=== PATIENT | female | born 1990 | race Caucasian/White ===

== ENCOUNTER 2017-04-12 21:30 | Emergency (ER) | payer SELFPAY ==
[~2017-04-12] VITALS: Ht 154.9 cm; Wt 80.0 kg
[~2017-04-12 21:30] MED LIST: ALKA SELTZE PO; AMOXICILLIN875 MG OR; AMOXICILLIN875 MG PO; BACTRIM DS1 TAB PO; CEPHALEXIN500 MG PO; CIPROFLOXACN500 MG PO; FLEXERIL10 MG PO; FLONASE NASAL50 MCG; HYDROCO/APAP1 T12 PO; LORTAB 5 OR; LORTAB 7.5-3251 TAB PO; NO; PENICILLIN VK250 MG PO; PRE-NATAL PO; PYRIDIUM200 MG PO; TUMS500 MG PO; TYLENOL 500MG TAB MT; TYLENOL 500MG TAB PO; ULTRAM50 M1 PO
[2017-04-12] MEDS ORDERED: PREDNISONE50 MG PO (21:43)
[2017-04-12 21:50] VITALS: BP 134/82
== END 2017-04-12 21:50 | disposition home or self-care (01) | DRG 563 ==
LOC: ED 21:30
DX: S43.431A Superior glenoid labrum lesion of right shoulder, initial encounter (principal); X50.0XXA Overexertion from strenuous movement or load, initial encounter; X50.3XXA Overexertion from repetitive movements, initial encounter; Y93.89 Activity, other specified; Y92.89 Other specified places as the place of occurrence of the external cause

== ENCOUNTER 2017-09-12 10:30 | Emergency (ER) | payer SELFPAY ==
[~2017-09-12] VITALS: Ht 154.9 cm; Wt 80.0 kg
[~2017-09-12 10:30] MED LIST changes: +PREDNISONE50 MG PO
[2017-09-12 11:09] LABS: URINE BILIRUBIN - DIPSTICK NEGATIVE (NEGATIVE); URINE BLOOD DIPSTICK LARGE (NEGATIVE); URINE COLOR YELLOW; URINE GLUCOSE - DIPSTICK NEGATIVE (NEGATIVE); URINE KETONE NEGATIVE (NEGATIVE); URINE LEUK ESTERASE NEGATIVE (NEGATIVE); URINE NITRITE - DIPSTICK NEGATIVE (Negative); URINE PROTEIN - DIPSTICK NEGATIVE (NEG-TRACE); URINE SPECIFIC GRAVITY >=1.030; URINE UROBILINOGEN - DIPSTICK 0.2 E.U./dL (0.2)
[2017-09-12 11:12] LABS: URINE CLARITY SL CLOUDY
[2017-09-12 11:14] LABS: URINE RBC 25-50 RBC/hpf (0-5)
[2017-09-12 11:23] LABS: HEMATOCRIT 42.5 % (37.0-47.0); HEMOGLOBIN 14.4 g/dl (12.0-16.0); IMMATURE GRANULOCYTES 0.6 % (0.0-1.0); MEAN CELL VOLUME 88.4 fL CALC (80.0-100.0); MEAN CORPUSCULAR HGB 29.9 pG CALC (26.0-32.0); MEAN CORPUSCULAR HGB CONC 33.9 g/L CALC (32.0-36.0); NEUT# 5.94 thou/uL (2.00-7.15); RED BLOOD COUNT 4.81 mill/uL (4.20-5.60); RED CELL DISTRI WIDTH 12.2 % (11.5-15.5)
[2017-09-12 11:28] LABS: ALBUMIN 4.6 g/dL (3.2-5.0); ALKALINE PHOSPHATASE 82 u/l (38-126); ANION GAP 17 (6-22 (CALC)); BILIRUBIN, TOTAL 0.7 mg/dL (0.0-1.4); BUN 16 mg/dL (7-17); BUN/CREATININE RATIO 23 (12-20 (CALC)); CARBON DIOXIDE 27 mmol/l (22-30); CHLORIDE 103 mmol/l (95-108); CREATININE 0.7 mg/dL (0.5-1.0); GFR > 60 ML/MIN (>=60 (CALC)); GFR FOR AFR.AMER. > 60 ML/MIN (>=60 (CALC)); LIPASE 88 u/l (23-300); POTASSIUM 3.7 mmol/l (3.5-5.1); SGOT/AST 24 u/l (14-36); SGPT/ALT 39 u/l (9-52); SODIUM 143 mmol/l (137-146)
[2017-09-12] MEDS ORDERED: PERCOCET 5/325M1 TAB PO (12:12)
[2017-09-12] MEDS ORDERED: KEFLEX500 M1 PO (12:12)
[2017-09-12] MEDS ORDERED: TAMSULOSIN0.4 MG PO (12:12)
[2017-09-12 12:37] VITALS: BP 137/74
== END 2017-09-12 12:38 | disposition home or self-care (01) | DRG 694 ==
LOC: ED 10:30
DX: N20.2 Calculus of kidney with calculus of ureter (principal)
CPT/HCPCS: Q9967

== ENCOUNTER 2018-11-29 11:19 | Emergency (ER) | payer OTHER ==
[~2018-11-29] VITALS: Ht 154.9 cm; Wt 90.0 kg
[~2018-11-29 11:19] MED LIST changes: +KEFLEX500 M1 PO; +PERCOCET 5/325M1 TAB PO; +TAMSULOSIN0.4 MG PO
[2018-11-29 12:00] LABS: HEMATOCRIT 42.5 % (37.0-47.0); HEMOGLOBIN 14.1 g/dl (12.0-16.0); IMMATURE GRANULOCYTES 0.4 % (0.0-5.0); MEAN CELL VOLUME 88.9 fL CALC (80.0-100.0); MEAN CORPUSCULAR HGB 29.5 pG CALC (26.0-32.0); MEAN CORPUSCULAR HGB CONC 33.2 g/L CALC (32.0-36.0); NEUT# 7.39 thou/uL (2.00-7.15); RED BLOOD COUNT 4.78 mill/uL (4.20-5.60); RED CELL DISTRI WIDTH 11.8 % (11.5-15.5)
[2018-11-29 12:10] LABS: ALBUMIN 4.6 g/dL (3.2-5.0); ALKALINE PHOSPHATASE 82 u/l (38-126); ANION GAP 13 (6-22 (CALC)); BILIRUBIN, TOTAL 0.5 mg/dL (0.0-1.4); BUN 11 mg/dL (7-17); BUN/CREATININE RATIO 20 (12-20 (CALC)); CARBON DIOXIDE 26 mmol/l (22-30); CHLORIDE 107 mmol/l (95-108); CREATININE 0.5 mg/dL (0.5-1.0); GFR > 60 ML/MIN (>=60 (CALC)); GFR FOR AFR.AMER. > 60 ML/MIN (>=60 (CALC)); LIPASE 122 u/l (23-300); SGOT/AST 23 u/l (14-36); SODIUM 141 mmol/l (137-146); TOTAL PROTEIN 7.6 g/dL (6.3-8.2)
[2018-11-29 12:16] LABS: POTASSIUM 4.5 mmol/l (3.5-5.1)
[2018-11-29] MEDS ORDERED: CEPHALEXIN500 M1 PO (14:24)
[2018-11-29] MEDS ORDERED: TRAMADOL HYDROC50 MG PO (14:24)
[2018-11-29] MEDS ORDERED: TAMSULOSIN0.4 MG PO (14:24)
[2018-11-29 14:35] VITALS: BP 121/69
== END 2018-11-29 14:35 | disposition home or self-care (01) | DRG 694 ==
LOC: ED 11:19
PROVIDERS: Family Medicine
DX: N21.0 Calculus in bladder (principal); N20.0 Calculus of kidney; Z87.442 Personal history of urinary calculi; R10.31 Right lower quadrant pain; R11.2 Nausea with vomiting, unspecified; K76.0 Fatty (change of) liver, not elsewhere classified

== ENCOUNTER 2021-03-10 09:23 | Emergency (ER) | payer OTHER ==
[~2021-03-10] VITALS: Ht 154.9 cm; Wt 110.0 kg
[~2021-03-10 09:23] MED LIST changes: +CEPHALEXIN500 M1 PO; +TRAMADOL HYDROC50 MG PO
[2021-03-10 09:47] LABS: HEMATOCRIT 42.3 % (37.0-47.0); HEMOGLOBIN 14.2 g/dl (12.0-16.0); IMMATURE GRANULOCYTES 0.1 % (0.0-5.0); MEAN CORPUSCULAR HGB 29.2 pG CALC (26.0-32.0); MEAN CORPUSCULAR HGB CONC 33.6 g/dL CAL (32.0-36.0); NEUT# 6.68 thou/uL (2.00-7.15); RED BLOOD COUNT 4.86 mill/uL (4.20-5.60); RED CELL DISTRI WIDTH 11.9 % (11.5-15.5)
[2021-03-10 09:58] LABS: ALBUMIN 4.4 g/dL (3.2-5.0); ALKALINE PHOSPHATASE 85 u/l (38-126); ANION GAP 13 (6-22 (CALC)); BILIRUBIN, TOTAL 0.7 mg/dL (0.0-1.4); BUN 14 mg/dL (7-17); BUN/CREATININE RATIO 28 (12-20 (CALC)); CARBON DIOXIDE 25 mmol/l (22-30); CHLORIDE 102 mmol/l (95-108); CREATININE 0.5 mg/dL (0.5-1.0); GFR > 60 ML/MIN (>=60 (CALC)); GFR FOR AFR.AMER. > 60 ML/MIN (>=60 (CALC)); POTASSIUM 3.9 mmol/l (3.5-5.1); SGOT/AST 27 u/l (14-36); SODIUM 137 mmol/l (137-146); TOTAL PROTEIN 7.6 g/dL (6.3-8.2)
[2021-03-10] MEDS ORDERED: HYDROCO/APAP1 TA9 PO (13:14)
[2021-03-10] MEDS ORDERED: LEVAQUIN750 M1 PO (13:14)
[2021-03-10 13:25] VITALS: BP 162/100
== END 2021-03-10 13:35 | disposition home or self-care (01) | DRG 313 ==
LOC: ED 09:23
PROVIDERS: Family Medicine
DX: R07.9 Chest pain, unspecified (principal); J90 Pleural effusion, not elsewhere classified; J45.909 Unspecified asthma, uncomplicated; E66.9 Obesity, unspecified
CPT/HCPCS: Q9967

== ENCOUNTER 2021-12-03 13:51 | Emergency (ER) | payer OTHER ==
[2021-12-03] VITALS (17 sets, daily range): BP systolic 135–193; BP diastolic 83–125
[~2021-12-03] VITALS: Ht 154.9 cm; Wt 89.0 kg
[~2021-12-03 13:51] MED LIST changes: +HYDROCO/APAP1 TA9 PO; +LEVAQUIN750 M1 PO
[2021-12-03 15:38] LABS: HEMATOCRIT 45.6 % (37.0-47.0); HEMOGLOBIN 15.2 g/dl (12.0-16.0); IMMATURE GRANULOCYTES 0.1 % (0.0-5.0); MEAN CELL VOLUME 87.9 fL CALC (80.0-100.0); MEAN CORPUSCULAR HGB 29.3 pG CALC (26.0-32.0); MEAN CORPUSCULAR HGB CONC 33.3 g/dL CAL (32.0-36.0); NEUT# 8.31 thou/uL (2.00-7.15); RED BLOOD COUNT 5.19 mill/uL (4.20-5.60); RED CELL DISTRI WIDTH 12.4 % (11.5-15.5)
[2021-12-03 15:51] LABS: ALBUMIN 4.7 g/dL (3.2-5.0); ALKALINE PHOSPHATASE 91 u/l (38-126); ANION GAP 13 (6-22 (CALC)); BILIRUBIN, TOTAL 0.9 mg/dL (0.0-1.4); BUN 9 mg/dL (7-17); BUN/CREATININE RATIO 16 (12-20 (CALC)); CARBON DIOXIDE 27 mmol/l (22-30); CHLORIDE 102 mmol/l (95-108); CREATININE 0.6 mg/dL (0.5-1.0); GFR FOR AFR.AMER. > 60 ML/MIN (>=60 (CALC)); GFR OTHER RACES > 60 ML/MIN (>=60 (CALC)); POTASSIUM 3.8 mmol/l (3.5-5.1); SGOT/AST 30 u/l (14-36); SODIUM 138 mmol/l (137-146); TOTAL PROTEIN 8.2 g/dL (6.3-8.2)
[2021-12-03] MEDS ORDERED: PAXLOVID PO (17:21)
== END 2021-12-03 17:46 | disposition home or self-care (01) | DRG 179 ==
LOC: ED 13:51
PROVIDERS: Nurse Practitioner
DX: U07.1 COVID-19 (principal); R50.9 Fever, unspecified; R05.9 Cough, unspecified; R51.9 Headache, unspecified; M79.10 Myalgia, unspecified site; J45.909 Unspecified asthma, uncomplicated